=== PATIENT | male | born 1930 | race Caucasian/White ===

== ENCOUNTER 2020-04-11 09:49 | Inpatient (IN) | payer OTHER, MEDICARE ==
[~2020-04-11] VITALS: Ht 188 cm; Wt 86.3 kg
[2020-04-11 10:16] LABS: BASOPHILS ABSOLUTE AUTO 0.06 K/mm3 (0.00-0.23); BASOPHILS PERCENT AUTO 1 % (0-2); EOSINOPHILS ABSOLUTE AUTO 0.08 K/mm3 (0.00-0.68); EOSINOPHILS PERCENT AUTO 1 % (0-6); Hematocrit 40.5 % (37.0-53.0); Hemoglobin 13.1 g/dL (13.5-17.5); IMMATURE GRAN ABSOLUTE AUTO 0.02 K/mm3 (0.00-0.10); IMMATURE GRAN PERCENT AUTO 0 % (0-1); LYMPHOCYTES ABSOLUTE AUTO 0.91 K/mm3 (0.84-5.20); LYMPHOCYTES PERCENT AUTO 14 % (21-46); MONOCYTES PERCENT AUTO 8 % (4-13); Mean Corpuscular HGB 31.4 pg (26.0-34.0); Mean Corpuscular HGB Conc 32.3 g/dL (31.5-36.5); Mean Corpuscular Volume 97 fL (80-100); Mean Platelet Volume 10.4 fL (9.1-12.4); NEUTROPHILS ABSOLUTE AUTO 5.13 K/mm3 (1.96-9.15); NEUTROPHILS PERCENT AUTO 77 % (41-73); Platelet Count 178 K/mm3 (150-400); RDW Standard Deviation 49.6 fL (35.1-46.3); Red Blood Cell Count 4.17 M/mm3 (4.30-5.90)
[2020-04-11 10:33] LABS: Alanine Aminotransfer (ALT/SGP 25 U/L (12-78); Albumin, Blood 3.7 g/dL (3.4-5.0); Albumin/Globulin Ratio 1.1 (0.8-1.8); Alk Phos 74 U/L (50-136); Anion Gap 5 mmol/L (6-16); Aspartate Aminotrans (AST/SGOT 19 U/L (12-37); Bilirubin, Total 1.8 mg/dL (0.1-1.0); Blood Urea Nitrogen 14 mg/dL (8-24); Bun/Creatinine Ratio 12.8 (12.0-20.0); CO2, Blood 26 mmol/L (21-32); Calcium, Blood 9.6 mg/dL (8.5-10.1); Chloride, Blood 110 mmol/L (98-108); Creatinine, Blood 1.09 mg/dL (0.60-1.20); Globulin, Blood 3.3 g/dL (2.2-4.0); Glomerular Filtration Rate >60 (60-); Glucose, Blood 116 mg/dL (70-99); Sodium, Blood 141 mmol/L (136-145); Troponin I 0.048 ng/mL (0.000-0.040)
[2020-04-11 11:51] LABS: Influenza A, PCR Negative (NEGATIVE); Influenza B, PCR Negative (NEGATIVE); Resp Syncytial Virus, PCR Negative (NEGATIVE); SARS-Cov-2 (COVID-19) PCR, MMC Negative (NEGATIVE)
[2020-04-11] MEDS ORDERED: LATA.005SO BOTHEYES (12:19)
[2020-04-11] MEDS ORDERED: TIMO.25OPS BOTHEYES (12:20)
[2020-04-11] MEDS ORDERED: Vitamin B-121000 MCG PO (12:29)
[2020-04-11] MEDS ORDERED: Vitamin D2000 UNIT PO (12:29)
[2020-04-11] MEDS ORDERED: MULVITA PO (12:30)
--- NOTE | 2020-04-11 17:15 | NUR ---
PT IS ALERT AND ORIENTED AND ABLE TO EXPRESS ANY NEEDS. HE HAS HAD NO COMPLAINTS OF PAIN , SOB , OR NV. NO ADVERSE REPORTS FROM TELE. PT NEWLY DIAGNOSED CHF. CALL LIGHT WITHIN REACH.
--- NOTE | 2020-04-12 04:52 | NUR ---
NURSE RECEPTIONIST SUMMARY A/OX4. APPEARED TO SLEEP T/O SHIFT. IND TO BATHROOM, STRICT I&O'S MONITORED. DENIES PAIN OR SOB. NO ACUTE CHANGES NOTED AT THIS TIME. BED IN LOWEST POSITION WITH CALL LIGHT IN REACH. WILL CONTINUE TO MONITOR AND REPORT TO ONCOMING RN.
[2020-04-12 05:23] LABS: Hematocrit 39.7 % (37.0-53.0); Hemoglobin 12.7 g/dL (13.5-17.5); Mean Corpuscular HGB 31.2 pg (26.0-34.0); Mean Corpuscular Volume 98 fL (80-100); Mean Platelet Volume 10.7 fL (9.1-12.4); Platelet Count 176 K/mm3 (150-400); RDW Coefficient Variation 13.8 % (11.7-14.2); Red Blood Cell Count 4.07 M/mm3 (4.30-5.90); White Blood Cell Count 6.66 K/mm3 (4.00-11.30)
[2020-04-12 05:50] LABS: Anion Gap 5 mmol/L (6-16); Blood Urea Nitrogen 16 mg/dL (8-24); Bun/Creatinine Ratio 13.1 (12.0-20.0); CHOL/HDL RATIO 3.2; CO2, Blood 30 mmol/L (21-32); Calcium, Blood 9.3 mg/dL (8.5-10.1); Chloride, Blood 105 mmol/L (98-108); Cholesterol 123 mg/dL (50-200); Creatinine, Blood 1.22 mg/dL (0.60-1.20); Glomerular Filtration Rate 60 (60-); Glucose, Blood 103 mg/dL (70-99); HDL Cholesterol 39 mg/dL (>39); LDL/HDL RATIO 1.9; Low Density Lipoprotein Chol 73 mg/dL (0-110); Potassium, Blood 3.6 mmol/L (3.5-5.5); Sodium, Blood 140 mmol/L (136-145); Triglycerides 56 mg/dL (30-160); Very Low Density Lipoprot Chol 11 mg/dL (6-32)
--- NOTE | 2020-04-12 11:30 | NUR ---
Initial palliative care consult: Baron is a 89 year old gentleman with a history of HTN who is currently not on any antihypertensive medications. He is normally quite active and independent. His Анна is at the bedside. This board writer was requested to be present this morning when Dr. Payan told Baron and Анна about his new diagnosis of CHF and aortic valve stenosis. Dr. Payan explained the diagnosis and options for treatment to Baron and Анна. Right after Dr. Payan finished, Dr. Sarabia, the tamper operator, stopped in to evaluate Baron. After much discussion with the tamper operator, Baron and Анна agree to move forward with the angiogram this afternoon as a first step in deciding if he would like to pursue a possible TAVR prodcedure. Baron is concerned about his finances and how much a hospitalization and valve replacement may cost. He is a and also has medicare coverage. Spoke with Tiffanie Castillo, social services director, who visited with Baron and Анна this morning also. Baron state he does not want to be cut open and go "under the knife." He will speak with his and dtr, granddaughter after his angiogram to decide what he would like to do. He is aware that if he chooses to not have the procedure done that his symptoms will continue to worsen. We discussed hospice as an option if he chose not to pursue a TAVR. 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 Both physcians told him that he isn't able to drive or ride quads at this time with his critical aortic stenosis. Both Baron and Анна agree to go forward with the angiogram at this time. PC will continue to follow for assistance with advanced care planning as needed. Did not address code status during this meeting as pt and just received news of his diagnosis and were trying to come to terms with it. Will plan to address code status after he has his angiogram.
--- NOTE | 2020-04-12 14:02 | NUR ---
PT ARRIVED TO [facility] HERE FROM THIRD FLOOR. AWAITING ANGIOGRAM WITH ABUSARA. PT A&OX3 AND DENIED ANY PAIN AT THIS TIME. WILL CONTINUE TO MONITOR.
--- NOTE | 2020-04-12 16:03 | NUR ---
PT TRANSFERRED FROM MEDICAL FLOOR. REPORT RECIEVED FROM JOHN LOREDO. REPORT RECIEVED FROM [facility] STAFF. NO INTERVENTION. PLAN FOR POSSIBLE TAVR. RIGHT RADIAL SITE WITH MINIMAL DRAINAGE. NO SIGN OF BRUISING OR HEMATOMA. NO FURTHER NEEDS AT THIS TIME.
--- NOTE | 2020-04-12 17:45 | NUR ---
SHIFT SUMMARY: PT TRANSFERRED FROM MEDICAL FLOOR POST CARDIAC CATH. RIGHT RADIAL SITE WITHOUT SIGN OF BLEEDING OR HEMATOMA. NO SWELLING NOTED. PT DEMONSTRATING APPROPRIATE USE OF ARM. VSS. DENIES CHEST PAIN. WAS AT BEDSIDE THIS SHIFT. POSSIBLE DC NEXT DAY OR SO. TREATMENT FOR NEW CHF. NO ACUTE NEEDS OR CONCERNS AT THIS TIME.
--- NOTE | 2020-04-12 20:51 | NUR ---
CARE ASSUMPTION PT A&O X4. SP02>92% ON RA. TELEMETRY READS SR W/ BBB, HR 60'S. R RADIAL SITE WNL. TR BAND INFLATED AND IN PLACE. NO BRUISING, BLEEDING, OR HEMATOMA. ARM BAND IN PLACE. PT INDEPENDENT IN ROOM. CALL LIGHT IN REACH. WILL CONTINUE TO MONITOR.
--- NOTE | 2020-04-13 04:00 | NUR ---
TR BAND REMOVAL PT HAS R RADIAL SITE. TR BAND DEFLATED AT APPROX 0150. TR BAND REMOVED AT APPROX 0350. SITE WNL. NO BLEEDING, BRUISING, OR HEMATOMA. TEGADERM APPLIED TO SITE. ARM BOARD IN PLACE. PULSE STRONG, CAP REFILL <3 SEC. PT DENIES PAIN. WILL CONTINUE TO MONITOR.
[2020-04-13 04:25] LABS: BASOPHILS ABSOLUTE AUTO 0.05 K/mm3 (0.00-0.23); BASOPHILS PERCENT AUTO 1 % (0-2); EOSINOPHILS ABSOLUTE AUTO 0.26 K/mm3 (0.00-0.68); EOSINOPHILS PERCENT AUTO 4 % (0-6); Hematocrit 42.1 % (37.0-53.0); Hemoglobin 13.7 g/dL (13.5-17.5); IMMATURE GRAN ABSOLUTE AUTO 0.01 K/mm3 (0.00-0.10); IMMATURE GRAN PERCENT AUTO 0 % (0-1); LYMPHOCYTES ABSOLUTE AUTO 1.12 K/mm3 (0.84-5.20); LYMPHOCYTES PERCENT AUTO 16 % (21-46); MONOCYTES ABSOLUTE AUTO 0.71 K/mm3 (0.16-1.47); MONOCYTES PERCENT AUTO 10 % (4-13); Mean Corpuscular HGB 31.2 pg (26.0-34.0); Mean Corpuscular HGB Conc 32.5 g/dL (31.5-36.5); Mean Corpuscular Volume 96 fL (80-100); Mean Platelet Volume 10.6 fL (9.1-12.4); NEUTROPHILS ABSOLUTE AUTO 4.92 K/mm3 (1.96-9.15); NEUTROPHILS PERCENT AUTO 70 % (41-73); Platelet Count 178 K/mm3 (150-400); RDW Standard Deviation 48.7 fL (35.1-46.3); Red Blood Cell Count 4.39 M/mm3 (4.30-5.90); White Blood Cell Count 7.07 K/mm3 (4.00-11.30)
[2020-04-13 04:50] LABS: Albumin, Blood 3.6 g/dL (3.4-5.0); Anion Gap 6 mmol/L (6-16); Blood Urea Nitrogen 16 mg/dL (8-24); Bun/Creatinine Ratio 13.6 (12.0-20.0); CHOL/HDL RATIO 3.6; CO2, Blood 31 mmol/L (21-32); Calcium, Blood 9.3 mg/dL (8.5-10.1); Chloride, Blood 104 mmol/L (98-108); Cholesterol 132 mg/dL (50-200); Creatinine, Blood 1.18 mg/dL (0.60-1.20); Glomerular Filtration Rate >60 (60-); Glucose, Blood 101 mg/dL (70-99); HDL Cholesterol 37 mg/dL (>39); LDL/HDL RATIO 2.2; Low Density Lipoprotein Chol 83 mg/dL (0-110); Magnesium, Blood 2.2 mg/dL (1.6-2.4); Phosphorus, Blood 3.2 mg/dL (2.5-4.9); Potassium, Blood 3.6 mmol/L (3.5-5.5); Sodium, Blood 141 mmol/L (136-145); Triglycerides 60 mg/dL (30-160); Very Low Density Lipoprot Chol 12 mg/dL (6-32)
--- NOTE | 2020-04-13 06:27 | NUR ---
SHIFT SUMMARY NO ACUTE CHANGES THIS SHIFT. PT A&O X4. VSS. SP02>92% ON RA. TELEMETRY READS SR. R RADIAL SITE WNL. TR BAND REMOVED AND TEGADERM PLACED ON SITE THIS SHIFT, SEE PREVIOUS NOTE. ARM BOARD IN PLACE. DENIES PAIN. PT C/O OF DAY 3 OF NO BM. CALLED MD THORNTON. MD THORNTON WITH ORDERS FOR MIROLAX PRN. PT AMBULATED SBA TO BATHROOM WITH NO ISSUES. SLEPT IN CHAIR OR BED T/O THE THE NIGHT. CALL LIGHT IN REACH. WILL CONTINUE TO MONITOR.
--- NOTE | 2020-04-13 07:18 | NUR ---
ASSUMED PATIENT CARE. PATIENT RESTING COMFORTABLY SITTING AT EDGE OF BED WITH SALES SERVICE PROMOTER AT BEDSIDE, CONVERSING WITH NURSING STAFF. NO DISCHARGE NOTED AT ANGIO SITE. NO SIGNS OF ACUTE DISTRESS, WCTM.
[2020-04-13] MEDS ORDERED: ACET325 PO (11:31)
[2020-04-13] MEDS ORDERED: ASPI81CH PO (11:32)
[2020-04-13] MEDS ORDERED: ATOR20 PO (11:33)
[2020-04-13] MEDS ORDERED: FURO20 PO (11:34)
[2020-04-13] MEDS ORDERED: LISI5 PO (11:35)
[2020-04-13] MEDS ORDERED: MIRALAX17 GM PO (11:36)
[2020-04-13] MEDS ORDERED: METO25 PO (11:44)
[2020-04-13] MEDS ORDERED: METO25ER PO (11:47)
--- NOTE | 2020-04-13 12:09 | NUR ---
PATIENT AND SPOUSE PROVIDED DISCHARGE INFO REGARDING FOLLOW UP PLANS, EDUCATION REGARDING CHF, ANGIO SITE CARE INSTRUCTIONS, AND MEDICATION INFORMATION. PATIENT EDUCATED ON REASONS TO CALL PRIMARY CARE AND REASONS TO RETURN TO THE HOSPITAL. PATIENT AND SPOUSE VERBALIZED UNDERSTANDING, NO SIGNS OF ACUTE DISTRESS. NO DISCHARGE NOTED AT ANGIO SITE, NO HEMATOMA NOTED.
== END 2020-04-13 12:42 | disposition home or self-care (01) | DRG 286 ==
LOC: ER 09:49 → MEDS 09:50 → PCU 04-12 14:29
PROVIDERS: Emergency Medicine; Nurse Practitioner Acute Care; ADMIT Internal Medicine
PROC: B2111ZZ Fluoroscopy of Multiple Coronary Arteries using Low Osmolar Contrast (ICD-10-PCS; principal; 2020-04-12)
DX: I35.2 Nonrheumatic aortic (valve) stenosis with insufficiency (principal); I50.21 Acute systolic (congestive) heart failure; Z20.828 Contact with and (suspected) exposure to other viral communicable diseases; I27.20 Pulmonary hypertension, unspecified; H40.9 Unspecified glaucoma; I25.10 Atherosclerotic heart disease of native coronary artery without angina pectoris
CPT/HCPCS: 0241U; 36415; 71045; 76937; 80048; 80053; 80061; 80069; 83036; 83735; 83880; 84443; 84484; 85025; 85027; 85347; 93005; 93010; 93306; 93454; 96374; 96376; 99152; 99153; 99285-25; A9270-GY; C1769; C1894; G0378; J1644; J1650; J1940; J2250; J3010; J7030; J7050; Q9967